=== PATIENT | female | born 1960 | race Caucasian/White ===

== ENCOUNTER 2023-12-27 06:24 | Emergency (ER) | payer OTHER, SELFPAY ==
[2023-12-27] VITALS (23 sets, daily range): BP systolic 118–144; BP diastolic 60–75; PULSE 60–85; RESP 13–25; TEMP 36.4–36.9; O2SAT 94–99; BMI 32.3
[2023-12-27 06:59] LABS: Add Manual Diff / Slide Review NO; Basophils Absolute Auto 0 /uL (0-100); Basophils Percent Auto 0.2 % (0-2); Eosinophils Absolute Auto 0 /uL (0-450); Hematocrit 36.7 % (36-46); Hemoglobin 12.4 g/dL (12.0-16.0); Lymphocytes Absolute Auto 900 /uL (1100-4500); Mean Corpuscular HGB Conc 33.7 % (30-36); Mean Corpuscular Volume 80.1 fL (80-100); Monocytes Absolute Auto 900 /uL (0-900); Monocytes Percent Auto 5.5 % (3-14); Neutrophils Absolute Auto 13900 /uL (1500-7000); Neutrophils Percent Auto 88.3 % (50-75); Platelet Count 209 X10^3/uL (150-400); Red Blood Cell Count 4.58 X10^6/uL (4.0-5.2); Red Cell Distribution Width 18.1 % (11.6-14.8); White Blood Cell Count 15.7 X10^3/uL (4.5-11.0)
[2023-12-27] MEDS: ONDANSETRON 4 MG/2 ML INJ IV ×2 (07:02→13:40)
[2023-12-27 07:20] LABS: Alanine Aminotransferase 69 IU/L (<35); Albumin 4.5 g/dL (3.5-5.0); Alkaline Phosphatase 186 U/L (38-126); Aspartate Aminotransferase 40 IU/L (14-36); BUN Creatinine Ratio 25.6 (6-22); Bilirubin Total 1.4 mg/dL (0.2-1.3); Blood Urea Nitrogen 11 mg/dL (7-17); Calcium 9.4 mg/dL (8.4-10.2); Carbon Dioxide 19 mmol/L (22-32); Chloride 103 mmol/L (98-107); Estimated Glomerular Filt Rate > 60 mL/min (>60); Globulin 4.4 g/dL (1.7-4.1); Glucose 123 mg/dL (80-110); HEMOLYSIS 35 (0-50); Lipase 33 U/L (23-300); Potassium 3.4 mmol/L (3.4-5.1); Sodium 133 mmol/L (137-145); Total Protein 8.9 g/dL (6.3-8.2)
--- NOTE | 2023-12-27 07:21 | ED_ITS ---
HPI - General Adult General Chief complaint: Nausea/Vomiting/Diarrhea Stated complaint: N/V/D, no drainage Time Seen by Provider: 12/27/23 06:39 Source: patient, family, RN notes reviewed and old records reviewed Mode of arrival: Wheelchair Limitations: no limitations History of Present Illness HPI narrative: 63-year-old female with history of anxiety and recently infected gallbladder patient had a drain placed percutaneously [place] on December 02, 2023. Since then she has been doing well until the last 24 hours she has had subjective fevers increasing right upper quadrant pain, nausea vomiting and diarrhea. Patient and family note that she did not have any output overnight, she was having decreasing drainage over time but had up to 75-100 mL as of the last few days. She states the site does seem to be quite tender they have noticed some slight drainage around the opening itself. Patient has a follow-up but not until January. Home medications include gabapentin and fluoxetine. She states allergy to codeine. No tobacco, occasional alcohol, no recreational drugs. They are visiting the area and but has been getting their care through [facility] in [place]. Related Data Allergies Allergy/AdvReac Type Severity Reaction Status Date / Time codeine Allergy Verified 12/27/23 09:16 Review of Systems Review of Systems ROS Unobtainable: All systems reviewed & are unremarkable except as noted in HPI and below Exam Narrative Exam Narrative: GENERAL: Alert and oriented x three, female in moderate distress. Patient appears uncomfortable. HEENT: Head normocephalic, atraumatic, EOMI, pupils reactive, face symmetric, moist mucous membranes NECK: Supple, full range of motion CARDIOVASCULAR: Regular rate and rhythm without murmurs, rubs or gallops. RESPIRATORY: Breath sounds equal bilaterally, no wheezes rales or rhonchi. No tachypnea accessory muscle use. ABDOMEN: Soft, positive for tenderness particularly in the right upper quadrant. Patient has drain placed there is what appears to be purulent fluid in the tubing very minimal in the bag but is starting to drain into the bag. The site itself for the drain has some very mild erythema and a scant amount of purulent drainage around. It is quite tender to touch. Normoactive bowel sounds all 4 quadrants. No guarding or rebound, rigidity, no mass : No CVA tenderness EXTREMITIES: Normal range of motion, no clubbing or edema. Neurovascularly intact NEUROLOGICAL: Cranial nerves II through XII grossly intact. Moving all extremities SKIN: Warm, dry, no petechiae, no rashes or lesions. Initial Vital Signs Initial Vital Signs: Vital Signs Temperature 97.6 F 12/27/23 06:29 Pulse Rate 85 12/27/23 06:29 Respiratory Rate 24 12/27/23 06:29 Blood Pressure 118/75 12/27/23 06:29 Pulse Oximetry 98 12/27/23 06:29 Oxygen Delivery Method Room Air 12/27/23 06:29 Course Orders Ordered: ED Orders 12/27/23 09:56 Ictotest Urine Stat Urine Culture Stat Urine Microscopic Stat Discontinued Medications Sodium Chloride (Normal Saline 0.9%) 1,000 mls @ 1,000 mls/hr IV BOLUS ONE Stop: 12/27/23 08:29 Last Infusion: 12/27/23 09:44 Dose: Infused Documented By: Admin: 12/27/23 07:48 Dose: 1,000 mls/hr Documented By: CHRISTA Piperacillin Sod/Tazobactam (Sod 4.5 gm/ Sodium Chloride) 100 mls @ 200 mls/hr IV NOW ONE Stop: 12/27/23 10:01 Last Infusion: 12/27/23 11:12 Dose: Infused Documented By: Admin: 12/27/23 10:15 Dose: 200 mls/hr Documented By: CHRISTA Sodium Chloride (Normal Saline 0.9%) 1,000 mls @ 150 mls/hr IV CONT VINH Last Infusion: 12/27/23 17:03 Dose: Infused Documented By: Admin: 12/27/23 10:16 Dose: 150 mls/hr Documented By: CHRISTA Ketorolac Tromethamine (Ketorolac 30 Mg/Ml Vial) 15 mg IV NOW ONE Stop: 12/27/23 07:31 Last Admin: 12/27/23 07:47 Dose: 15 mg Documented By: CHRISTA Ketorolac Tromethamine (Ketorolac 30 Mg/Ml Vial) 15 mg IV NOW ONE Stop: 12/27/23 13:30 Last Admin: 12/27/23 13:40 Dose: 15 mg Documented By: MARÍA Ondansetron HCl (Ondansetron 4 Mg/2 Ml Inj) 4 mg IV NOW ONE Stop: 12/27/23 07:01 Last Admin: 12/27/23 07:02 Dose: 4 mg Documented By: GRIFFIN Ondansetron HCl (Ondansetron 4 Mg/2 Ml Inj) 4 mg IV NOW ONE Stop: 12/27/23 13:30 Last Admin: 12/27/23 13:40 Dose: 4 mg Documented By: TC Vital Signs Vital signs: Vital Signs - 8 hr 12/27/23 12:06 12/27/23 12:08 12/27/23 12:08 Temperature Pulse Rate 63 65 Respiratory Rate 14 16 Blood Pressure 121/70 Pulse Oximetry 97 97 12/27/23 12:30 12/27/23 12:30 12/27/23 13:06 Temperature Pulse Rate 65 64 Respiratory Rate 19 Blood Pressure 131/69 Pulse Oximetry 97 94 12/27/23 13:08 12/27/23 13:08 12/27/23 13:30 Temperature Pulse Rate 68 66 Respiratory Rate 20 19 Blood Pressure 130/71 Pulse Oximetry 97 98 12/27/23 13:30 12/27/23 14:00 12/27/23 14:00 Temperature Pulse Rate 64 Respiratory Rate 13 Blood Pressure 133/67 144/73 H Pulse Oximetry 98 12/27/23 14:30 12/27/23 14:30 12/27/23 14:36 Temperature 98.5 F Pulse Rate 67 Respiratory Rate 20 Blood Pressure 123/60 Pulse Oximetry 96 12/27/23 15:02 12/27/23 15:03 12/27/23 15:03 Temperature Pulse Rate 75 73 Respiratory Rate 25 H Blood Pressure 124/64 Pulse Oximetry 97 98 12/27/23 15:30 12/27/23 15:30 12/27/23 16:00 Temperature Pulse Rate 65 Respiratory Rate 16 Blood Pressure 137/71 126/66 Pulse Oximetry 98 12/27/23 16:00 12/27/23 16:30 12/27/23 16:30 Temperature Pulse Rate 65 65 Respiratory Rate 15 18 Blood Pressure 132/63 Pulse Oximetry 98 97 Medical Decision Making Lab Data 12/27/23 06:50 12/27/23 06:50 Labs: Lab Results 12/27/23 12/27/23 Range/Units 06:50 09:56 WBC 15.7 H (4.5-11.0) X10^3/uL RBC 4.58 (4.0-5.2) X10^6/uL Hgb 12.4 (12.0-16.0) g/dL Hct 36.7 (36-46) % MCV 80.1 (80-100) fL MCH 27.0 (26-34) PG MCHC 33.7 (30-36) % RDW 18.1 H (11.6-14.8) % Plt Count 209 (150-400) X10^3/uL Neut % (Auto) 88.3 H (50-75) % Lymph % (Auto) 6.0 L (25-40) % [place] % (Auto) 5.5 (3-14) % Eos % (Auto) 0.0 L (2-4) % Baso % (Auto) 0.2 (0-2) % Neut # (Auto) 93415 H (6805-9209) /uL Lymph # (Auto) 900 L (9187-7657) /uL [place] # (Auto) 900 (0-900) /uL Eos # (Auto) 0 (0-450) /uL Baso # (Auto) 0 (0-100) /uL Sodium 133 L (137-145) mmol/L Potassium 3.4 (3.4-5.1) mmol/L Chloride 103 (98-107) mmol/L Carbon Dioxide 19 L (22-32) mmol/L BUN 11 (7-17) mg/dL Creatinine 0.43 L (0.52-1.04) mg/dL Estimated GFR > 60 (>60) mL/min BUN/Creatinine Ratio 25.6 H (6-22) Glucose 123 H (80-110) mg/dL Lactate 1.2 (0.7-2.1) mmol/L Calcium 9.4 (8.4-10.2) mg/dL Total Bilirubin 1.4 H (0.2-1.3) mg/dL AST 40 H (14-36) IU/L ALT 69 H (<35) IU/L Alkaline Phosphatase 186 H (38-126) U/L Total Protein 8.9 H (6.3-8.2) g/dL Albumin 4.5 (3.5-5.0) g/dL Globulin 4.4 H (1.7-4.1) g/dL Albumin/Globulin Ratio 1.0 (1.0-2.8) Lipase 33 (23-300) U/L Procalcitonin 0.128 (<0.5) ng/mL Ur Bilirubin Confirm Negative (Negative) Urine RBC 10-30/hpf H (0-5/HPF) Urine WBC 0-1/hpf (0-5/HPF) Ur Squamous Epith Cells 0-1 /hpf (0-5/HPF) Amorphous Sediment 1+ Urine Bacteria Occasional (0-1) (None) Ur Culture Indicated? Specimen cultured Vol Urine Centrifuged 10ml (spun) Urine Dip Bedside Urine Glucose Negative Bedside Urine Bilirubin + 1 Bedside Urine Ketone +++ 80 Urine Specific [place] 1.01 Bedside Urine Occult Blood ++ Bedside Urine pH 5.5 Bedside Urine Protein +/- 15 Bedside Urine Urobilinogen - Negative Bedside Urine Nitrite - Negative Bedside Urine Leukocytes +/- 15 Esterase Point of care testing: Urine Dip Bedside Urine Glucose Negative Bedside Urine Bilirubin + 1 Bedside Urine Ketone +++ 80 Urine Specific [place] 1.01 Bedside Urine Occult Blood ++ Bedside Urine pH 5.5 Bedside Urine Protein +/- 15 Bedside Urine Urobilinogen - Negative Bedside Urine Nitrite - Negative Bedside Urine Leukocytes +/- 15 Esterase MDM Narrative Medical decision making narrative: White count of 15.7, hemoglobin 12.4 platelets of 209, sodium is 133 potassium 3.4 chloride 103 CO2 is 19 with a BUN of 11, creatinine 0.43, glucose is 123. Bilirubin is elevated at 1.4 with an AST of 40 ALT of 69 alk-phos of 186, lipase is 33. Because of patient's white count, vitals are overall appropriate but lactate, blood cultures and procalcitonin were added on. CT abdomen pelvis was obtained to evaluate for any fluid collection, infection or other changes. This shows gallbladder is distended with significant gallbladder wall inflammation, cholecystostomy tubes in place, recommend correlation of function to given distended gallbladder wall thickening of the colon adjacent to gallbladder likely reactive, bile duct measuring up to 1.2 cm. Patient received fluids Zofran and Toradol, on recheck. Spoke with Dr. Cochran, general surgery at [facility]. Would like more information about why patient had drain placed rather than cholecystectomy. Unable to get records but spoke with patient and family. Has been states they had taken her for laparoscopic cholecystectomy, were unable to visualize properly and talk to him about open cholecystectomy versus drain. Patient has been decided that they would prefer drain as they had plans to travel to [facility]. Drain was placed they did travel to [place]. They have since returned there was some delay in follow up because of insurance issues but has been having regular checks. Patient is scheduled to be seen January 23 for follow up with plan for removal of drain and plan for follow up for laparoscopic cholecystectomy. All of her care so far has been through [facility] in [place]. Attempting to obtain records from [facility], vessel but spoke with. Reviewed patient's labs, CT finding, drain has not been draining properly for about 12-24 hours. Patient does not appear septic but is uncomfortable. He states he did not place the drain but if it appears in place on CT would recommend flushing. Asked to patient has been flushing daily. After discussion patient states she was not taught to do this she has been having regular checks the drain tubing and bag were replaced yesterday. He notes if were able to flush and drained begins to drain properly he can see patient tomorrow as an outpatient and asked to call back. If it is not draining properly when patient prefers to have the drain replaced would require transfer, there was no one on- call at [place] so would have to go to [facility] in [place] and would ask that we call coordinator. Patient was able to pull off about 9-10 mL fluid from the drainage shelf, this was flushed patient's tubing appears to be draining properly. Bag was drained fully and we will monitor to see if draining appropriately. If not we will re- contact has patient states she prefers to have the drain replaced rather than have surgery with potential for open cholecystectomy. Patient was monitored for over an hour and a half has not had any output from the drain since, there is none in the tubing since tubing was also flushed as well. Discussed with patient she prefers to have her drain replaced. We will re-contact GI. Spoke with Dr. Mcgill, CHRISTAL happy to see patient he is covering for multiple hospitals including [facility] in [place]. He is at [facility] tomorrow but not today. He is agreeable to see patient versus outpatient follow-up if patient is felt appropriate. Patient is quite painful very uncomfortable not felt appropriate for outpatient discharge or to drive back home. She prefers to continue with percutaneous drainage and have her drain replaced rather than cholecystectomy. We do not have that capability here so called to [facility], no beds available but [facility] but the beds at [facility] in [place]. Spoke with Dr. Goodman, hospitalist at [facility] accepts for transfer for obstruction or malfunction of percutaneous cholecystostomy drain. Accepts for transfer plan for [facility] bed which seems appropriate patient's vitals has been appropriate here during. Awaiting bed assignment. Thus far patient has been afebrile, no tachycardia or hypotension. She has otherwise been well-appearing. She did have an additional dose of Toradol 6 hours after initial as well as Zofran and feels much more comfortable. Patient continues to have no output from her drain. Discharge Plan Departure Patient Disposition: [facility] Clinical Impression: Vomiting
--- NOTE | 2023-12-27 07:30 | DI.CT.S_ITS ---
PROCEDURE: CT ABDOMEN PELVIS W CON INDICATIONS: RUQ pain, new n/v/d, has GB drain from 12/01 TECHNIQUE: After the administration of intravenous contrast, axial sections acquired from the lung bases to the pubic symphysis. Coronal and sagittal reformats were performed. For radiation dose reduction, the following was used: automated exposure control, adjustment of mA and/or kV according to patient size. COMPARISON: None. FINDINGS: Image quality: Diagnostic. Lower Chest: No significant findings. ABDOMEN: Liver: No solid mass. Right hepatic lobe simple appearing cyst. Gallbladder: Gallbladder is distended with a large gallstone, significant wall thickening and inflammation. Cholecystostomy tube in place. Biliary ducts: Dilated common bile duct measuring up to 1.2 cm. Pancreas: No ductal dilation. Spleen: Size is within normal limits. Adrenal Glands: No adrenal nodules. Kidneys and Ureters: No hydronephrosis. No solid mass. No complex renal cystic lesion which requires follow up. Subcentimeter hypodensities, too small to accurately characterize. Stomach and Bowel: Small hiatal hernia. Renal white gastric bypass. There is wall thickening of the colon adjacent to the gallbladder, likely reactive secondary to adjacent gallbladder inflammation. Peritoneum: No abnormal intraperitoneal fluid. No free air. Ventral Wall: No significant ventral hernia. Abdominal Nodes: No retroperitoneal or mesenteric adenopathy by size criteria. Vessels: Aorta and inferior vena cava are normal in size. Mild atherosclerotic vascular calcifications. PELVIS: Pelvic Organs: Unremarkable. Bladder: No bladder wall thickening, accounting for underdistention. Pelvic Nodes: No enlarged lymph nodes. Miscellaneous: No inguinal hernias are seen. Bones: No aggressive osseous abnormality. Decreased osseous mineralization. Mild degenerative changes. IMPRESSION: 1. Gallbladder is distended with significant gallbladder wall inflammation. Cholecystostomy tube in place. Recommend correlation with function of tube given distended gallbladder. 2. Wall thickening of the colon adjacent to the gallbladder, likely reactive gallbladder inflammation. 3. Common bile duct is dilated measuring up to 1.2 cm. Dictated by: Kashmir Washington M.D. on 12/27/2023 at 8:11 Approved by: Kashmir Washington M.D. on 12/27/2023 at 8:18
[2023-12-27 07:43] LABS: Lactate (Lactic Acid) 1.2 mmol/L (0.7-2.1)
[2023-12-27] MEDS: KETOROLAC 30 MG/ML VIAL 15 MG IV ×2 (07:47→13:40)
[2023-12-27] MEDS: SODIUM CHLORIDE 0.9% 1,000 ML 1000 ML IV (07:48)
[2023-12-27 08:00] LABS: Procalcitonin 0.128 ng/mL (<0.5)
[2023-12-27 10:08] LABS: Ictotest Urine Negative (Negative)
[2023-12-27 10:09] LABS: Urine Volume 10mL (spun)
[2023-12-27 10:14] LABS: Amorphous Sediment Urine 1+; Bacteria Urine Occasional (0-1); Culture Indicated Urine Specimen Cultured; RBC Urine 10-30/HPF (0-5/HPF); Squamous Epithelial Cell Urine 0-1 /HPF (0-5/HPF); WBC Urine 0-1/HPF (0-5/HPF)
[2023-12-27] MEDS: PIPERACILLIN/TAZO 4.5 GM in SODIUM CHLORIDE 0.9% 100 ML IV (10:15)
[2023-12-27] MEDS: SODIUM CHLORIDE 0.9% 1,000 ML 150 ML IV (10:16)
--- NOTE | 2023-12-27 11:03 | PC.NURSE ---
Per MD Hanson orders: biliary drain unattached from extension tubing/bag, aspirated 9cc purulent drainage from biliary drain, extension tubing cleared, stopcock attached, 10cc sterile water flushed through drain (no leaking, no resistance, and no pain noted), stopcock positioned to allow flow out of drain and into drainage bag, drainage bag emptied; awaiting to see if biliary drain is patent and draining. New bandage in place over drain site--no sutures attaching drain to skin noted. MD rodriguez.
--- NOTE | 2023-12-27 12:10 | PC.NURSE ---
Abdominal tenderness; pt denies need for further pain meds as of 1210. Pt drain in place; unknown about patency. Pt biliary drain flushes well. Original dressing was saturated w/ serous/purulent fluid. Odor noted.
--- NOTE | 2023-12-27 16:20 | PC.NURSE ---
Reassess; no change. no new drainage noted
== END 2023-12-27 17:06 | disposition short-term general hospital (02) ==
PROVIDERS: Emergency Medicine; Emergency Provider Emergency Medicine
DX: T85.590A Other mechanical complication of bile duct prosthesis, initial encounter (principal); R50.9 Fever, unspecified; R11.2 Nausea with vomiting, unspecified; R10.11 Right upper quadrant pain; R79.89 Other specified abnormal findings of blood chemistry
CPT/HCPCS: 36415; 74177; 80053; 81003; 81015; 83605; 83690; 84145; 85025; 87040; 87086; 96361; 96365; 96375; 96376; 99284; J1885; J2405; J2543; Q9967